=== PATIENT | female | born 1980 | race Hispanic/Latino ===

== ENCOUNTER 2018-01-01 00:24 | Emergency (ER) | payer SELFPAY | END 2018-01-01 00:38 | disposition home or self-care (01) | LOC: EDH 00:24 | DX: J06.9 Acute upper respiratory infection, unspecified (principal); B97.89 Other viral agents as the cause of diseases classified elsewhere; R05 Cough; Z98.890 Other specified postprocedural states | CPT/HCPCS: 99281 ==